=== PATIENT | male | born 1950 | race Two or more races ===

== ENCOUNTER 2025-03-19 09:27 | Outpatient (CLI) | payer OTHER ==
[2025-03-19] VITALS (9 sets, daily range): BP systolic 134–155; BP diastolic 62–76; PULSE 56–61; RESP 10; TEMP 97.4; O2SAT 98–100
[2025-03-19] MEDS: HEPARIN SODIUM (PORCINE) 5000 UNITS/ML 1ML VIAL ONE (10:56)
[2025-03-19] MEDS: fentaNYL CITRATE 100 MCG/2 ML VL ONE (10:56)
[2025-03-19] MEDS: MIDAZOLAM HCL 2MG/2ML 2ml VIAL (1mg/ml) ONE (10:56)
[2025-03-19] MEDS: LIDOCAINE 2%HCL (LOCAL ANESTH.) INJ 20ML MDV ONE (10:57)
[2025-03-19] MEDS: ceFAZolin 1GM/50ML 50 ML IV ONE (11:46)
--- NOTE | 2025-03-19 12:29 | DVH ---
PROCEDURE: TUNNELED CENTRAL VENOUS CATHETER PLACEMENT USING FLUOROSCOPY AND ULTRASOUND HISTORY: TUNNELED DIALYSIS CATH INSERTION DOCUMENTATION: Informed consent was obtained and a procedural time out was performed. SEDATION: Moderate sedation was utilized during the procedure. The patient received benzodiazepines a nd opioids, the dosing of which was documented in the patient s permanent medical record. Pre-sedatio n history and evaluation revealed no contraindications to sedation. The patient s level of consciousn ess and physiologic status was monitored continuously by the physician and nursing staff throughout t he procedure. Total intra-service moderate sedation time was 30 minutes. FLUORO: 1 minutes, DAp: 2 mGy, TECHNIQUE: The skin over the RIGHT internal jugular vein and chest was sterilely prepped, draped and anesthetized with 1% lidocaine with epinephrine. The vein was accessed with a 21-gauge needle under u ltrasound guidance with an image archived in the PACS. A guidewire was then passed into the central v eins under fluoroscopy. The subcutaneous tunnel was anesthetized with 1% lidocaine and the catheter w as tunneled to the venous entry site, cut to the appropriate length, and inserted through a peel away sheath. A final radiograph was obtained, the catheter was flushed and secured in place, and sterile dressings were applied. Procedural physician complied with all CLIP criteria, including preprocedural hand hygiene and use of maximum sterile barriers including hat, gown, sterile gloves, mask, and head to toe drape. The neck and chest were prepped with chlorhexidine solution and draped in the usual sterile fashion. The prep solution was allowed to dry prior to puncture. FINDINGS: Ultrasound demonstrates a patent RIGHT internal jugular vein. The tip of the catheter was placed near the cavoatrial junction. No complications are identified. IMPRESSION: SUCCESSFUL 14.5 x 23 cm SRI LANKAN DUAL-LUMEN POWER INJECTABLE TUNNELED CENTRAL VENOUS CATHETER PLACEMENT . THE CATHETER IS READY FOR IMMEDIATE USE.
== END 2025-03-19 17:00 | disposition home or self-care (01) ==
LOC: CATH 09:27
PROVIDERS: ATTEND Internal Medicine Nephrology
DX: T82.41XA Breakdown (mechanical) of vascular dialysis catheter, initial encounter (principal); Z99.2 Dependence on renal dialysis; Y82.8 Other medical devices associated with adverse incidents
CPT/HCPCS: 36581; 77001; C1750; C1769; J0690; J1644; J2250; J3010; J7040; 99152